=== PATIENT | male | born 1970 | race Caucasian/White ===

== ENCOUNTER 2022-03-21 09:38 | Emergency (ER) | payer OTHER, SELFPAY | END 2022-03-21 09:53 | disposition home or self-care (01) | LOC: ERS 09:38 | DX: Z76.0 Encounter for issue of repeat prescription (principal); E78.5 Hyperlipidemia, unspecified | CPT/HCPCS: 99281 ==

== ENCOUNTER 2022-04-16 09:08 | Emergency (ER) | payer OTHER, SELFPAY ==
[2022-04-16] MEDS ORDERED: Dexamethasone 10 MG/ML VIAL ONE (12:07)
== END 2022-04-16 12:10 | disposition home or self-care (01) ==
LOC: ERS 09:08
DX: J02.9 Acute pharyngitis, unspecified (principal); I10 Essential (primary) hypertension
CPT/HCPCS: 87081; 87430; 96372; 99283; J1100